=== PATIENT | female | born 1995 | race Caucasian/White ===

== ENCOUNTER 2020-12-20 09:03 | Emergency (ER) | payer OTHER ==
[~2020-12-20] VITALS: Ht 177.8 cm; Wt 90.9 kg
[2020-12-20 10:02] LABS: GLUCOSE,POINT OF CARE 108 MG/DL (70-110)
[2020-12-20] MEDS ORDERED: ONDANSETRON HCL 4 MG/2 ML VIAL IVP ONE (10:15)
[2020-12-20] MEDS ORDERED: SODIUM CHLORIDE 0.9% 1,000 ML IV ONE (10:15)
[2020-12-20] MEDS ORDERED: FAMOTIDINE 40 MG in SODIUM CHLORIDE 0.9% 100 ML IV ONE (10:15)
[2020-12-20 11:33] LABS: BASOPHILS % (AUTO) 0.6 % (0.0-2.0); EOSINOPHILS % (AUTO) 0.7 % (1.0-6.0); HEMATOCRIT 36.9 % (36-46); HEMOGLOBIN 12.4 g/dL (12.0-16.0); LYMPHOCYTES # (AUTO) 1.1 K/uL (1.0-4.8); LYMPHOCYTES % (AUTO) 19.1 % (22.0-44.0); MEAN CORPUSCULAR HEMOGLOBIN 30.6 pg (26.0-34.0); MEAN CORPUSCULAR HGB CONC 33.5 G/dL (31.0-37.0); MEAN CORPUSCULAR VOLUME 91 fL (80-100); MONOCYTES # (AUTO) 0.3 K/uL (0.1-1.0); MONOCYTES % (AUTO) 5.2 % (2.0-9.0); NEUTROPHILS # (AUTO) 4.4 K/uL (1.8-7.7); NEUTROPHILS % (AUTO) 74.4 % (40.0-70.0); PLATELET COUNT (AUTO) 230 K/uL (150-450); RED BLOOD CELL COUNT(AUTO) 4.05 MIL/uL (4.00-5.20); RED CELL DISTRIBUTION WIDTH 12.9 % (11.5-14.5)
[2020-12-20 11:49] LABS: ANION GAP 9 mmol/L (8-16); CALCIUM, TOTAL 9.4 mg/dL (8.8-10.5); CARBON DIOXIDE 27 mmol/L (22-29); CHLORIDE 109 mmol/L (98-107); CREATININE 0.85 mg/dL (0.60-1.30); GLOMERULAR FILTR. RATE CALC > 60 mL/min (>60); GLUCOSE,RANDOM 100 mg/dL (70-110); POTASSIUM 4.2 mmol/L (3.5-5.1); SODIUM SERUM 145 mmol/L (136-145); UREA NITROGEN, BLOOD 10 mg/dL (7-18)
[2020-12-20 11:53] LABS: ALANINE AMINOTRANSFERASE 13 U/L (12-78); ALBUMIN 3.9 g/dL (3.4-5.0); ALKALINE PHOSPHATASE 46 U/L (46-116); ASPARTATE AMINOTRANSFERASE 19 U/L (15-37); BILIRUBIN,TOTAL 0.3 mg/dL (0.1-1.0); LIPASE 110 U/L (73-393); TOTAL PROTEIN, SERUM 7.5 g/dL (6.4-8.2)
[2020-12-20 12:12] LABS: APPEARANCE,URINE CLEAR (CLEAR); BILIRUBIN,URINE NEGATIVE (NEGATIVE); GLUCOSE, URINE (UA) NEGATIVE (NEGATIVE); KETONES,URINE NEGATIVE (NEGATIVE); LEUKOCYTE ESTERASE ,URINE NEGATIVE (NEGATIVE); NITRATE,URINE NEGATIVE (NEGATIVE); PROTEIN,URINE NEGATIVE (NEGATIVE); UROBILINOGEN,URINE 0.2 mg/dL (<=1.0)
[2020-12-20 12:20] LABS: AMPHET/METH SCREEN,URINE NEGATIVE (NEGATIVE); BACTERIA,URINE None Seen /HPF (None Seen); BARBITURATE SCREEN, URINE NEGATIVE (NEGATIVE); BENZODIAZEPINES SCREEN,URINE NEGATIVE (NEGATIVE); CANNABINOID SCREEN,URINE POSITIVE (NEGATIVE); COCAINE SCREEN,URINE NEGATIVE (NEGATIVE); METHADONE SCREEN, URINE NEGATIVE (NEGATIVE); OCCULT BLOOD,URINE SMALL (NEGATIVE); OPIATE SCREEN,URINE NEGATIVE (NEGATIVE); PHENCYCLIDINE SCREEN,URINE NEGATIVE (NEGATIVE); WBC,URINE None Seen /HPF (0-5)
[2020-12-20 12:48] VITALS: BP 124/75
== END 2020-12-20 13:15 | disposition home or self-care (01) ==
LOC: EMS 09:03
DX: K21.9 Gastro-esophageal reflux disease without esophagitis (principal); K58.9 Irritable bowel syndrome, unspecified; F32.9 Major depressive disorder, single episode, unspecified; F41.9 Anxiety disorder, unspecified; M79.10 Myalgia, unspecified site
CPT/HCPCS: 36415; 80053; 80307; 81001; 82962; 83690; 85025; 96365; 96375; 99284; J2405; J3490; J7030; J7050

== ENCOUNTER 2021-02-19 10:13 | Emergency (ER) | payer OTHER ==
[~2021-02-19] VITALS: Ht 177.8 cm; Wt 88.6 kg
[2021-02-19] MEDS ORDERED: HYDROCODONE/ACETAMINOPHEN 5-325 MG TABLET PO ONE (11:15)
[2021-02-19 12:35] VITALS: BP 115/77
== END 2021-02-19 12:43 | disposition home or self-care (01) ==
LOC: EMS 10:13
DX: S83.92XA Sprain of unspecified site of left knee, initial encounter (principal); M23.92 Unspecified internal derangement of left knee; F17.210 Nicotine dependence, cigarettes, uncomplicated; X50.1XXA Overexertion from prolonged static or awkward postures, initial encounter; Y93.89 Activity, other specified; Y92.89 Other specified places as the place of occurrence of the external cause; Y99.8 Other external cause status
CPT/HCPCS: 29505; 99283

== ENCOUNTER 2022-04-10 23:04 | Emergency (ER) | payer OTHER ==
[~2022-04-10] VITALS: Ht 177.8 cm; Wt 88.6 kg
[2022-04-10 23:31] LABS: COVID AG,FIA SOURCE NASAL SWAB
[2022-04-10 23:57] LABS: INFLUENZA TYPE A NEGATIVE FOR TYPE A (NEGATIVE); INFLUENZA TYPE B NEGATIVE FOR TYPE B (NEGATIVE)
[2022-04-11 02:01] VITALS: BP 155/95
== END 2022-04-11 02:00 | disposition left against medical advice (07) ==
LOC: EMS 23:05
DX: R07.9 Chest pain, unspecified (principal); F41.9 Anxiety disorder, unspecified; F10.20 Alcohol dependence, uncomplicated; F17.210 Nicotine dependence, cigarettes, uncomplicated; R51.9 Headache, unspecified; Z20.822 Contact with and (suspected) exposure to COVID-19
CPT/HCPCS: 87426; 87804; 93005; 99284; C9803; U0003; Z7502

== ENCOUNTER 2022-05-08 00:27 | Inpatient (IN) | payer OTHER ==
[~2022-05-08] VITALS: Ht 172.7 cm; Wt 86.0 kg
[2022-05-08] MEDS ORDERED: ONDANSETRON HCL 4 MG/2 ML VIAL IVP ONE ×2 (01:00→12:00)
[2022-05-08] MEDS ORDERED: FAMOTIDINE 10 MG/ML 2 ML VIAL IVP ONE (01:00)
[2022-05-08] MEDS ORDERED: KETOROLAC TROMETHAMINE 30 MG/ML VIAL IVP ONE (01:00)
[2022-05-08] MEDS ORDERED: MORPHINE SULFATE 2 MG/ML SYRINGE IVP ONE ×2 (01:00→05:15)
[2022-05-08] MEDS ORDERED: SODIUM CHLORIDE 0.9% 1,000 ML IV ONE ×3 (01:00→08:30)
[2022-05-08 01:22] LABS: BASOPHILS % (AUTO) 0.2 % (0.0-2.0); EOSINOPHILS % (AUTO) 0.9 % (1.0-6.0); HEMATOCRIT 41.9 % (36-46); HEMOGLOBIN 14.1 g/dL (12.0-16.0); LYMPHOCYTES # (AUTO) 2.3 K/uL (1.0-4.8); LYMPHOCYTES % (AUTO) 12.7 % (22.0-44.0); MEAN CORPUSCULAR HEMOGLOBIN 30.7 pg (26.0-34.0); MEAN CORPUSCULAR HGB CONC 33.8 G/dL (31.0-37.0); MEAN CORPUSCULAR VOLUME 91 fL (80-100); MONOCYTES # (AUTO) 1.3 K/uL (0.1-1.0); MONOCYTES % (AUTO) 7.5 % (2.0-9.0); NEUTROPHILS # (AUTO) 14.1 K/uL (1.8-7.7); NEUTROPHILS % (AUTO) 78.7 % (40.0-70.0); PLATELET COUNT (AUTO) 275 K/uL (150-450)
[2022-05-08 01:24] LABS: ANION GAP 8 mmol/L (8-16); CALCIUM, TOTAL 9.5 mg/dL (8.8-10.5); CARBON DIOXIDE 28 mmol/L (22-29); CHLORIDE 100 mmol/L (98-107); CREATININE 0.94 mg/dL (0.60-1.30); GLUCOSE,RANDOM 109 mg/dL (70-110); POTASSIUM 4.2 mmol/L (3.5-5.1); SODIUM SERUM 136 mmol/L (136-145); UREA NITROGEN, BLOOD 10 mg/dL (7-18)
[2022-05-08 01:29] LABS: GLOMERULAR FILTR. RATE CALC > 60 mL/min (>60)
[2022-05-08 01:36] LABS: ALANINE AMINOTRANSFERASE 38 U/L (12-78); ALBUMIN 3.8 g/dL (3.4-5.0); ALKALINE PHOSPHATASE 56 U/L (46-116); ASPARTATE AMINOTRANSFERASE 26 U/L (15-37); BILIRUBIN,TOTAL 0.2 mg/dL (0.1-1.0); HCG,QUANTITATIVE < 1 mIU/mL (0-6); LIPASE 156 U/L (73-393); TOTAL PROTEIN, SERUM 7.6 g/dL (6.4-8.2)
[2022-05-08] MEDS ORDERED: SODIUM CHLORIDE 0.9% 100 ML ONE (01:51)
[2022-05-08] MEDS ORDERED: IOHEXOL 350 MG/ML 100 ML VIAL ONE (01:51)
[2022-05-08 04:06] LABS: APPEARANCE,URINE CLEAR (CLEAR); BILIRUBIN,URINE NEGATIVE (NEGATIVE); GLUCOSE, URINE (UA) NEGATIVE (NEGATIVE); LEUKOCYTE ESTERASE ,URINE NEGATIVE (NEGATIVE); NITRATE,URINE NEGATIVE (NEGATIVE); OCCULT BLOOD,URINE NEGATIVE (NEGATIVE); PROTEIN,URINE 30-70 mg/dL (NEGATIVE); UROBILINOGEN,URINE <=1.0 mg/dL (<=1.0)
[2022-05-08] MEDS ORDERED: ACETAMINOPHEN 325 MG TABLET PO PRN (06:00)
[2022-05-08] MEDS ORDERED: 0.9% SODIUM CHLORIDE 10 ML SYRINGE IVP PRN (06:00)
[2022-05-08] MEDS ORDERED: ONDANSETRON HCL 4 MG/2 ML VIAL IVP PRN ×2 (06:00→08:30)
[2022-05-08] MEDS ORDERED: PIPERACILLIN/TAZO 3.375 GM/D5W 50 ML IV ONE (06:00)
[2022-05-08] MEDS ORDERED: MORPHINE SULFATE 2 MG/ML SYRINGE IVP PRN (08:30)
[2022-05-08] MEDS: DOCUSATE SODIUM 100 MG CAPSULE PO SCH ×2 (08:55→20:01)
[2022-05-08] MEDS: PANTOPRAZOLE SODIUM 40 MG/VIAL IVP SCH (09:10)
[2022-05-08 10:57] VITALS: BP 121/55
[2022-05-08] MEDS ORDERED: ROCURONIUM BROMIDE 10 MG/ML 5 ML VIAL IVP ONE (12:00)
[2022-05-08] MEDS ORDERED: SUCCINYLCHOLINE CHLORIDE 20 MG/ML 10 ML VIAL IVP ONE (12:00)
[2022-05-08] MEDS ORDERED: MIDAZOLAM HCL 2 MG/2 ML VIAL IVP ONE (12:00)
[2022-05-08] MEDS ORDERED: FentaNYL CITRATE PF 100 MCG/2 ML VIAL IVP ONE (12:00)
[2022-05-08] MEDS ORDERED: LIDOCAINE/PF 2% 5 ML VIAL IM ONE (12:00)
[2022-05-08] MEDS ORDERED: DEXAMETHASONE SOD PHOS 4 MG/ML VIAL IVP ONE (12:00)
[2022-05-08] MEDS ORDERED: KETOROLAC TROMETHAMINE 60 MG/2 ML VIAL IM ONE (12:00)
[2022-05-08] MEDS ORDERED: PROPOFOL 1% 20 ML VIAL IVP ONE (12:00)
[2022-05-08] MEDS: HYDROmorphone 2 MG/ML VIAL IVP PRN ×2 (13:44→20:19)
[2022-05-08] MEDS: PIPERACILLIN/TAZO 3.375 GM/D5W 50 ML IV SCH ×3 (13:47→23:13)
[2022-05-08 15:15] VITALS: BP 102/63
[2022-05-08] MEDS: ACETAMINOPHEN 325 MG TABLET PO PRN (16:43)
[2022-05-08] MEDS ORDERED: SODIUM CHLORIDE 0.9% 1,000 ML ONE ×2 (17:11→18:39)
[2022-05-08] MEDS ORDERED: BUPIVACAINE 0.25%/EPI 1:200,000/PF 10 ML VIAL ONE (17:11)
[2022-05-08] MEDS ORDERED: RINGERS SOLUTION,LACTATED 1,000 ML IV ONE ×2 (17:21)
[2022-05-08] MEDS ORDERED: SUGAMMADEX SODIUM 200 MG/2 ML VIAL IVP ONE (18:11)
[2022-05-08] MEDS ORDERED: HYDROmorphone 2 MG/ML VIAL IVP PRN (18:30)
[2022-05-08] MEDS ORDERED: MEPERIDINE-PF 25 MG/ML VIAL IVP PRN (18:30)
[2022-05-08] MEDS ORDERED: FentaNYL CITRATE PF 100 MCG/2 ML VIAL ONE (18:38)
[2022-05-08] MEDS: FentaNYL CITRATE PF 100 MCG/2 ML VIAL IVP PRN ×2 (18:41→18:54)
[2022-05-08 19:47] VITALS: BP 100/64
[2022-05-08] MEDS: OXYGEN THERAPY IH SCH (20:01)
[2022-05-08 23:56] VITALS: BP 119/75
[2022-05-09] MEDS: HYDROmorphone 2 MG/ML VIAL IVP PRN ×6 (00:08→23:40)
[2022-05-09 04:19] VITALS: BP 101/64
[2022-05-09] MEDS: PIPERACILLIN/TAZO 3.375 GM/D5W 50 ML IV SCH ×4 (05:31→23:40)
[2022-05-09 06:57] LABS: BASOPHILS % (AUTO) 0.1 % (0.0-2.0); EOSINOPHILS % (AUTO) 0 % (1.0-6.0); HEMATOCRIT 40.5 % (36-46); HEMOGLOBIN 13.5 g/dL (12.0-16.0); LYMPHOCYTES # (AUTO) 0.9 K/uL (1.0-4.8); LYMPHOCYTES % (AUTO) 8.5 % (22.0-44.0); MEAN CORPUSCULAR HEMOGLOBIN 30.9 pg (26.0-34.0); MEAN CORPUSCULAR HGB CONC 33.3 G/dL (31.0-37.0); MEAN CORPUSCULAR VOLUME 93 fL (80-100); MONOCYTES # (AUTO) 0.3 K/uL (0.1-1.0); MONOCYTES % (AUTO) 2.6 % (2.0-9.0); NEUTROPHILS # (AUTO) 9.6 K/uL (1.8-7.7); PLATELET COUNT (AUTO) 253 K/uL (150-450); RED BLOOD CELL COUNT(AUTO) 4.37 MIL/uL (4.00-5.20)
[2022-05-09 06:59] LABS: ALANINE AMINOTRANSFERASE 31 U/L (12-78); ALKALINE PHOSPHATASE 45 U/L (46-116); ANION GAP 8 mmol/L (8-16); ASPARTATE AMINOTRANSFERASE 17 U/L (15-37); BILIRUBIN,TOTAL 0.4 mg/dL (0.1-1.0); CALCIUM, TOTAL 9.1 mg/dL (8.8-10.5); CARBON DIOXIDE 26 mmol/L (22-29); CHLORIDE 104 mmol/L (98-107); GLUCOSE,RANDOM 165 mg/dL (70-110); POTASSIUM 3.8 mmol/L (3.5-5.1); SODIUM SERUM 138 mmol/L (136-145); TOTAL PROTEIN, SERUM 6.7 g/dL (6.4-8.2); UREA NITROGEN, BLOOD 6 mg/dL (7-18)
[2022-05-09 07:03] LABS: NEUTROPHILS % (AUTO) 88.8 % (40.0-70.0)
[2022-05-09 07:04] LABS: GLOMERULAR FILTR. RATE CALC > 60 mL/min (>60)
[2022-05-09 07:27] VITALS: BP 112/54
[2022-05-09] MEDS: DOCUSATE SODIUM 100 MG CAPSULE PO SCH ×2 (09:03→20:11)
[2022-05-09] MEDS: OXYGEN THERAPY IH SCH ×2 (09:04→20:00)
[2022-05-09] MEDS: PANTOPRAZOLE SODIUM 40 MG/VIAL IVP SCH (09:05)
[2022-05-09 11:43] VITALS: BP 114/49
[2022-05-09] MEDS: ACETAMINOPHEN 325 MG TABLET PO PRN ×2 (16:14→21:36)
[2022-05-09] MEDS ORDERED: SODIUM CHLORIDE 0.9% 500 ML IV ONE (17:42)
[2022-05-09 18:30] VITALS: BP 106/55
[2022-05-09 20:49] VITALS: BP 107/63
[2022-05-10 00:22] VITALS: BP 115/74
[2022-05-10 05:32] VITALS: BP 112/68
[2022-05-10] MEDS: PIPERACILLIN/TAZO 3.375 GM/D5W 50 ML IV SCH (05:50)
[2022-05-10] MEDS: ACETAMINOPHEN 325 MG TABLET PO PRN (05:54)
[2022-05-10] MEDS: HYDROmorphone 2 MG/ML VIAL IVP PRN (07:08)
[2022-05-10 07:39] VITALS: BP 114/81
[2022-05-10] MEDS: OXYGEN THERAPY IH SCH (08:00)
== END 2022-05-10 08:50 | disposition home or self-care (01) | DRG 710 ==
LOC: EMS 00:29 → 5S 10:28
PROVIDERS: ADMIT Internal Medicine; ATTEND Internal Medicine
PROC: 0DTJ4ZZ Resection of Appendix, Percutaneous Endoscopic Approach (ICD-10-PCS; principal; 2022-05-08 17:45)
DX: A41.9 Sepsis, unspecified organism (principal); K35.80 Unspecified acute appendicitis
CPT/HCPCS: 74177; 76700; 80053; 81003; 83605; 83690; 84702; 85025; 88304; 99285; C9113; G0378; J0330; J1100; J1170; J1885; J2250; J2270; J2405; J2543; J2704; J3010; J3490; J7030; J7040; J7050; J7120; Q9967

== ENCOUNTER 2022-10-07 12:13 | Emergency (ER) | payer OTHER ==
[~2022-10-07] VITALS: Ht 177.8 cm; Wt 84.1 kg
[2022-10-07 12:46] LABS: COVID AG,FIA SOURCE NASAL SWAB
[2022-10-07 13:19] LABS: INFLUENZA TYPE A NEGATIVE FOR TYPE A (NEGATIVE); INFLUENZA TYPE B NEGATIVE FOR TYPE B (NEGATIVE)
[2022-10-07] MEDS ORDERED: SODIUM CHLORIDE 0.9% 1,000 ML IV ONE (13:45)
[2022-10-07 14:15] LABS: BASOPHILS % (AUTO) 0.3 % (0.0-2.0); EOSINOPHILS % (AUTO) 1.5 % (1.0-6.0); HEMATOCRIT 44.2 % (36-46); HEMOGLOBIN 14.2 g/dL (12.0-16.0); LYMPHOCYTES # (AUTO) 1.7 K/uL (1.0-4.8); LYMPHOCYTES % (AUTO) 18.4 % (22.0-44.0); MEAN CORPUSCULAR HEMOGLOBIN 30.3 pg (26.0-34.0); MEAN CORPUSCULAR HGB CONC 32.2 G/dL (31.0-37.0); MEAN CORPUSCULAR VOLUME 94 fL (80-100); MONOCYTES # (AUTO) 0.7 K/uL (0.1-1.0); MONOCYTES % (AUTO) 7.4 % (2.0-9.0); NEUTROPHILS # (AUTO) 6.5 K/uL (1.8-7.7); NEUTROPHILS % (AUTO) 72.4 % (40.0-70.0); PLATELET COUNT (AUTO) 219 K/uL (150-450); RED BLOOD CELL COUNT(AUTO) 4.69 MIL/uL (4.00-5.20)
[2022-10-07 14:26] LABS: ANION GAP 3 mmol/L (8-16); CALCIUM, TOTAL 9.2 mg/dL (8.8-10.5); CARBON DIOXIDE 30 mmol/L (22-29); CHLORIDE 105 mmol/L (98-107); CREATININE 0.76 mg/dL (0.60-1.30); GLUCOSE,RANDOM 91 mg/dL (70-110); POTASSIUM 4.1 mmol/L (3.5-5.1); SODIUM SERUM 138 mmol/L (136-145); UREA NITROGEN, BLOOD 8 mg/dL (7-18)
[2022-10-07 14:30] LABS: GLOMERULAR FILTR. RATE CALC > 60 mL/min (>60)
[2022-10-07 14:31] LABS: ALANINE AMINOTRANSFERASE 12 U/L (12-78); ALBUMIN 3.4 g/dL (3.4-5.0); ALKALINE PHOSPHATASE 57 U/L (46-116); ASPARTATE AMINOTRANSFERASE 15 U/L (15-37); BILIRUBIN,TOTAL 0.4 mg/dL (0.1-1.0)
[2022-10-07 14:37] LABS: APPEARANCE,URINE CLEAR (CLEAR); BILIRUBIN,URINE NEGATIVE (NEGATIVE); GLUCOSE, URINE (UA) NEGATIVE (NEGATIVE); KETONES,URINE NEGATIVE (NEGATIVE); LEUKOCYTE ESTERASE ,URINE NEGATIVE (NEGATIVE); NITRATE,URINE NEGATIVE (NEGATIVE); OCCULT BLOOD,URINE NEGATIVE (NEGATIVE); PH,URINE 7.5 (5.0-8.0); PROTEIN,URINE NEGATIVE (NEGATIVE); SPECIFIC GRAVITIY, URINE 1.009 (1.003-1.030); UROBILINOGEN,URINE <=1.0 mg/dL (<=1.0)
[2022-10-07 14:43] LABS: AMPHET/METH SCREEN,URINE NEGATIVE (NEGATIVE); BARBITURATE SCREEN, URINE NEGATIVE (NEGATIVE); BENZODIAZEPINES SCREEN,URINE NEGATIVE (NEGATIVE); CANNABINOID SCREEN,URINE POSITIVE (NEGATIVE); COCAINE SCREEN,URINE NEGATIVE (NEGATIVE); METHADONE SCREEN, URINE NEGATIVE (NEGATIVE); OPIATE SCREEN,URINE NEGATIVE (NEGATIVE); PHENCYCLIDINE SCREEN,URINE NEGATIVE (NEGATIVE)
[2022-10-07 16:11] VITALS: BP 123/96
== END 2022-10-07 16:13 | disposition home or self-care (01) ==
LOC: EMS 12:16
DX: F41.9 Anxiety disorder, unspecified (principal); Z90.49 Acquired absence of other specified parts of digestive tract; Z20.822 Contact with and (suspected) exposure to COVID-19
CPT/HCPCS: 80053; 81003; 85025; 87804; 96360; 99285; 36415-L1; 36415-TC

== ENCOUNTER 2023-04-03 15:21 | Emergency (ER) | payer OTHER ==
[~2023-04-03] VITALS: Ht 177.8 cm; Wt 88.6 kg
[2023-04-03] MEDS ORDERED: KETOROLAC TROMETHAMINE 60 MG/2 ML VIAL IM ONE (17:15)
[2023-04-03] MEDS ORDERED: HYDROCODONE/ACETAMINOPHEN 5-325 MG TABLET PO ONE (17:15)
[2023-04-03] MEDS ORDERED: HYDR-4072 PO (17:17)
[2023-04-03] MEDS ORDERED: IBUP-1554 PO (17:17)
[2023-04-03 17:36] VITALS: BP 116/75
== END 2023-04-03 17:46 | disposition home or self-care (01) ==
LOC: EMS 15:22
DX: S83.92XA Sprain of unspecified site of left knee, initial encounter (principal); M23.92 Unspecified internal derangement of left knee; Z90.49 Acquired absence of other specified parts of digestive tract; Z98.890 Other specified postprocedural states; X50.1XXA Overexertion from prolonged static or awkward postures, initial encounter; Y93.F9 Activity, other caregiving; Y92.89 Other specified places as the place of occurrence of the external cause; Y99.8 Other external cause status
CPT/HCPCS: 99283; 73562; 96372; J1885

== ENCOUNTER 2023-12-11 03:54 | Emergency (ER) | payer OTHER ==
[~2023-12-11] VITALS: Ht 176.5 cm; Wt 84.1 kg
[~2023-12-11 03:54] MED LIST: HYDR-4072 PO; IBUP-1554 PO; LEVO750T68 PO
[2023-12-11 04:01] VITALS: BP 117/89; PULSE 102; RESP 18; TEMP 99.1
[2023-12-11] MEDS ORDERED: KETOROLAC TROMETHAMINE 30 MG/ML VIAL IM ONE (04:30)
[2023-12-11] MEDS ORDERED: ACETAMINOPHEN 500 MG TABLET PO ONE (04:30)
[2023-12-11 05:07] LABS: INFLUENZA B-RTPCR,COMBO NEGATIVE (NEGATIVE); RESPIRATORY SYNCYTIAL VRS-PCR NEGATIVE (NEGATIVE); SARS COVID19 RTPCR, COMBO NEGATIVE (NEGATIVE)
[2023-12-11 05:12] LABS: BASOPHILS % (AUTO) 0.5 % (0.0-2.0); EOSINOPHILS % (AUTO) 0.2 % (1.0-6.0); HEMATOCRIT 36.4 % (36-46); HEMOGLOBIN 12.3 g/dL (12.0-16.0); LYMPHOCYTES # (AUTO) 0.8 K/uL (1.0-4.8); LYMPHOCYTES % (AUTO) 17.2 % (22.0-44.0); MEAN CORPUSCULAR HEMOGLOBIN 30.8 pg (26.0-34.0); MEAN CORPUSCULAR HGB CONC 33.7 G/dL (31.0-37.0); MEAN CORPUSCULAR VOLUME 91 fL (80-100); MONOCYTES # (AUTO) 0.7 K/uL (0.1-1.0); MONOCYTES % (AUTO) 15.9 % (2.0-9.0); NEUTROPHILS # (AUTO) 3.1 K/uL (1.8-7.7); NEUTROPHILS % (AUTO) 66.2 % (40.0-70.0); PLATELET COUNT (AUTO) 280 K/uL (150-450); RED BLOOD CELL COUNT(AUTO) 3.99 MIL/uL (4.00-5.20); RED CELL DISTRIBUTION WIDTH 12.2 % (11.5-14.5); WHITE BLOOD COUNT (AUTO) 4.6 K/uL (4.5-11.0)
[2023-12-11 05:12] LABS: INFLUENZA A-RTPCR,COMBO POSITIVE (NEGATIVE)
[2023-12-11 05:22] LABS: TROPONIN I-HIGH SENSITIVITY 8 ng/L (<51)
[2023-12-11 05:24] LABS: ALANINE AMINOTRANSFERASE 36 U/L (12-78); ALBUMIN 2.7 g/dL (3.4-5.0); ALKALINE PHOSPHATASE 102 U/L (46-116); ANION GAP 6 mmol/L (8-16); ASPARTATE AMINOTRANSFERASE 23 U/L (15-37); BILIRUBIN,TOTAL 0.2 mg/dL (0.1-1.0); CALCIUM, TOTAL 9.4 mg/dL (8.8-10.5); CARBON DIOXIDE 30 mmol/L (22-29); CHLORIDE 100 mmol/L (98-107); CREATINE KINASE, TOTAL ONLY 42 U/L (26-192); CREATININE 0.83 mg/dL (0.60-1.30); GLOMERULAR FILTR. RATE CALC > 60 mL/min (>60); GLUCOSE,RANDOM 101 mg/dL (70-110); POTASSIUM 3.7 mmol/L (3.5-5.1); SODIUM SERUM 136 mmol/L (136-145); TOTAL PROTEIN, SERUM 7.4 g/dL (6.4-8.2); UREA NITROGEN, BLOOD 6 mg/dL (7-18)
[2023-12-11] MEDS ORDERED: ACET-3385 PO (05:31)
[2023-12-11] MEDS ORDERED: IBUP-1492 PO (05:31)
== END 2023-12-11 06:16 | disposition home or self-care (01) ==
LOC: EMS 03:54
DX: J10.1 Influenza due to other identified influenza virus with other respiratory manifestations (principal); F32.A Depression, unspecified; F12.90 Cannabis use, unspecified, uncomplicated; Z90.49 Acquired absence of other specified parts of digestive tract; Z98.890 Other specified postprocedural states; Z20.822 Contact with and (suspected) exposure to COVID-19
CPT/HCPCS: 99284; 0241U; 80053; 82550; 84484; 84703; 85025; 36415; 93005; 96372; J1885

== ENCOUNTER 2025-02-23 00:57 | Emergency (ER) | payer OTHER ==
[~2025-02-23] VITALS: Ht 177.8 cm; Wt 90.9 kg
[~2025-02-23 00:57] MED LIST changes: +ACET-3385 PO; +IBUP-1492 PO
[2025-02-23 01:10] VITALS: BP 115/78; PULSE 98; RESP 18; TEMP 98.4; O2SAT 100
[2025-02-23 01:54] LABS: BASOPHILS % (AUTO) 0.4 % (0.0-2.0); EOSINOPHILS % (AUTO) 1.8 % (1.0-6.0); HEMATOCRIT 37.5 % (36-46); HEMOGLOBIN 12.4 g/dL (12.0-16.0); LYMPHOCYTES # (AUTO) 2.2 K/uL (1.0-4.8); LYMPHOCYTES % (AUTO) 17.2 % (22.0-44.0); MEAN CORPUSCULAR HEMOGLOBIN 30.4 pg (26.0-34.0); MEAN CORPUSCULAR HGB CONC 33.1 G/dL (31.0-37.0); MEAN CORPUSCULAR VOLUME 92 fL (80-100); MONOCYTES # (AUTO) 0.8 K/uL (0.1-1.0); MONOCYTES % (AUTO) 6.2 % (2.0-9.0); NEUTROPHILS # (AUTO) 9.5 K/uL (1.8-7.7); NEUTROPHILS % (AUTO) 74.4 % (40.0-70.0); PLATELET COUNT (AUTO) 265 K/uL (150-450); RED BLOOD CELL COUNT(AUTO) 4.09 MIL/uL (4.00-5.20); RED CELL DISTRIBUTION WIDTH 12.3 % (11.5-14.5); WHITE BLOOD COUNT (AUTO) 12.8 K/uL (4.5-11.0)
[2025-02-23 01:57] LABS: ANION GAP 7 mmol/L (8-16); CARBON DIOXIDE 28 mmol/L (22-29); CHLORIDE 101 mmol/L (98-107); CREATININE 0.76 mg/dL (0.60-1.30); GLOMERULAR FILTR. RATE CALC > 60 mL/min (>60); GLUCOSE,RANDOM 108 mg/dL (70-110); SODIUM SERUM 136 mmol/L (136-145); UREA NITROGEN, BLOOD 9 mg/dL (7-18)
[2025-02-23 02:00] LABS: ALCOHOL, BLOOD (SERUM) < 3 mg/dL (0-10)
[2025-02-23] MEDS ORDERED: LORA1TAB25 PO (03:50)
[2025-02-23] MEDS: LORazepam 2 MG/ML VIAL IM ONE (04:03)
== END 2025-02-23 04:05 | disposition home or self-care (01) ==
LOC: EMS 00:58
DX: F43.22 Adjustment disorder with anxiety (principal); G47.00 Insomnia, unspecified; K58.9 Irritable bowel syndrome, unspecified; F12.90 Cannabis use, unspecified, uncomplicated; Z87.440 Personal history of urinary (tract) infections; Z90.49 Acquired absence of other specified parts of digestive tract
CPT/HCPCS: 99283; 80048; 85025; 36415; 96372; G0480; J2060

== ENCOUNTER 2025-05-08 02:32 | Emergency (ER) | payer OTHER ==
[~2025-05-08] VITALS: Ht 177.8 cm; Wt 95.5 kg
[~2025-05-08 02:32] MED LIST changes: +LORA1TAB25 PO
[2025-05-08 03:11] LABS: PLATELET COUNT (AUTO) 256 K/uL (150-450); RED BLOOD CELL COUNT(AUTO) 3.95 MIL/uL (4.00-5.20); RED CELL DISTRIBUTION WIDTH 12.3 % (11.5-14.5); WHITE BLOOD COUNT (AUTO) 10.0 K/uL (4.5-11.0)
[2025-05-08 03:18] LABS: CALCIUM, TOTAL 9.3 mg/dL (8.8-10.5); CREATININE 0.70 mg/dL (0.60-1.30); GLOMERULAR FILTR. RATE CALC > 60 mL/min (>60); GLUCOSE,RANDOM 110 mg/dL (70-110); SODIUM SERUM 140 mmol/L (136-145); UREA NITROGEN, BLOOD 7 mg/dL (7-18)
[2025-05-08 03:20] VITALS: TEMP 98.405312
[2025-05-08 03:44] LABS: ASPARTATE AMINOTRANSFERASE 27.0 U/L (15-37); HCG,QUANTITATIVE 7383.0 mIU/mL (0-6); TOTAL PROTEIN, SERUM 6.8 g/dL (6.4-8.2)
[2025-05-08] MEDS: SODIUM CHLORIDE 0.9% 1,000 ML IV ONE (04:16)
[2025-05-08 06:17] LABS: APPEARANCE,URINE CLEAR (CLEAR); GLUCOSE, URINE (UA) NEGATIVE (NEGATIVE); LEUKOCYTE ESTERASE ,URINE TRACE (NEGATIVE); NITRATE,URINE NEGATIVE (NEGATIVE); OCCULT BLOOD,URINE NEGATIVE (NEGATIVE); SPECIFIC GRAVITIY, URINE 1.030 (1.003-1.030)
[2025-05-08 06:28] LABS: SQUAMOUS EPITHELIAL CELL,UR Few /LPF (None Seen)
[2025-05-08] MEDS ORDERED: PREN-18 PO (08:31)
[2025-05-08 08:48] VITALS: BP 119/76; PULSE 90; RESP 18; O2SAT 98
== END 2025-05-08 08:59 | disposition home or self-care (01) ==
LOC: EMS 02:33
DX: O26.893 Other specified pregnancy related conditions, third trimester (principal); R10.2 Pelvic and perineal pain; R11.10 Vomiting, unspecified; F12.90 Cannabis use, unspecified, uncomplicated; F41.9 Anxiety disorder, unspecified; K58.9 Irritable bowel syndrome, unspecified; K21.9 Gastro-esophageal reflux disease without esophagitis; Z87.19 Personal history of other diseases of the digestive system; Z87.440 Personal history of urinary (tract) infections; Z90.49 Acquired absence of other specified parts of digestive tract; Z3A.28 28 weeks gestation of pregnancy
CPT/HCPCS: 99284; 96360; 96361; 76801; 80048; 80076; 81001; 82150; 83690; 84702; 85025; 36415; J7030

== ENCOUNTER 2025-06-04 16:36 | Emergency (ER) | payer OTHER ==
[~2025-06-04] VITALS: Ht 177.8 cm; Wt 108.2 kg
[~2025-06-04 16:36] MED LIST changes: +PREN-18 PO
[2025-06-04 16:58] VITALS: TEMP 98.1
[2025-06-04 17:55] LABS: GLUCOMETER DEV NAME(LOC) ERT.7; GLUCOSE,POINT OF CARE 142 MG/DL (70-110)
[2025-06-04 17:56] LABS: PLATELET COUNT (AUTO) 245 K/uL (150-450); RED BLOOD CELL COUNT(AUTO) 3.88 MIL/uL (4.00-5.20); RED CELL DISTRIBUTION WIDTH 12.5 % (11.5-14.5); WHITE BLOOD COUNT (AUTO) 11.0 K/uL (4.5-11.0)
[2025-06-04 18:08] LABS: CALCIUM, TOTAL 8.4 mg/dL (8.8-10.5); CREATININE 0.75 mg/dL (0.60-1.30); GLOMERULAR FILTR. RATE CALC > 60 mL/min (>60); GLUCOSE,RANDOM 138 mg/dL (70-110); SODIUM SERUM 139 mmol/L (136-145); UREA NITROGEN, BLOOD 8 mg/dL (7-18)
[2025-06-04] MEDS: ACETAMINOPHEN 500 MG TABLET PO ONE (18:38)
[2025-06-04 20:11] VITALS: BP 111/69; PULSE 104; RESP 18; O2SAT 99
== END 2025-06-04 20:13 | disposition home or self-care (01) ==
LOC: EMS 16:38
DX: O26.891 Other specified pregnancy related conditions, first trimester (principal); S80.12XA Contusion of left lower leg, initial encounter; R55 Syncope and collapse; F41.9 Anxiety disorder, unspecified; F32.A Depression, unspecified; K21.9 Gastro-esophageal reflux disease without esophagitis; Z90.49 Acquired absence of other specified parts of digestive tract; K58.9 Irritable bowel syndrome, unspecified; F12.90 Cannabis use, unspecified, uncomplicated; Z79.899 Other long term (current) drug therapy; W19.XXXA Unspecified fall, initial encounter; Y93.89 Activity, other specified; Y92.89 Other specified places as the place of occurrence of the external cause; Y99.9 Unspecified external cause status
CPT/HCPCS: 80048; 82962; 84702; 85025; 93005; 99284

== ENCOUNTER 2025-07-11 10:16 | Emergency (ER) | payer OTHER ==
[~2025-07-11] VITALS: Ht 177.8 cm; Wt 109.1 kg
[~2025-07-11 10:16] MED LIST changes: -ACET-3385 PO; -HYDR-4072 PO; -IBUP-1492 PO; -LEVO750T68 PO; -LORA1TAB25 PO
[2025-07-11 10:27] VITALS: BP 135/102; PULSE 103; RESP 18; TEMP 97.6; O2SAT 97
== END 2025-07-11 10:44 | disposition left against medical advice (07) ==
LOC: EMS 10:22
DX: O36.8130 Decreased fetal movements, third trimester, not applicable or unspecified (principal); F41.9 Anxiety disorder, unspecified; F32.A Depression, unspecified; K21.9 Gastro-esophageal reflux disease without esophagitis; O99.613 Diseases of the digestive system complicating pregnancy, third trimester; M19.90 Unspecified osteoarthritis, unspecified site; F12.90 Cannabis use, unspecified, uncomplicated; Z90.49 Acquired absence of other specified parts of digestive tract; Z87.19 Personal history of other diseases of the digestive system; Z53.29 Procedure and treatment not carried out because of patient's decision for other reasons; Z3A.36 36 weeks gestation of pregnancy; Z79.899 Other long term (current) drug therapy
CPT/HCPCS: 99282; Z7502